=== PATIENT | female | born 1950 | race Two or more races ===

== ENCOUNTER 2018-02-17 07:14 | Day surgery (SDC) | payer MEDICARE, OTHER ==
[2018-02-17] MEDS ORDERED: LABETALOL HCL 20MG INJ (14:33)
== END 2018-02-17 19:44 | disposition home or self-care (01) ==
LOC: GIL 07:14 → SDS 07:14 → GIL 19:44
DX: K29.50 Unspecified chronic gastritis without bleeding (principal); K76.6 Portal hypertension; K31.89 Other diseases of stomach and duodenum; I10 Essential (primary) hypertension; E11.9 Type 2 diabetes mellitus without complications; E66.9 Obesity, unspecified; Z68.39 Body mass index [BMI] 39.0-39.9, adult; I50.9 Heart failure, unspecified
CPT/HCPCS: 43239; 82962; 88305; 88312